=== PATIENT | male | born 2000 | race Caucasian/White ===

== ENCOUNTER → 2019-01-07 11:38 | Outpatient (POV) | payer BC, SELFPAY | PROVIDERS: Visit Provider Dentist | DX: Z00.00 Encounter for general adult medical examination without abnormal findings (principal) ==

== ENCOUNTER 2021-08-10 14:02 | Emergency (ER) | payer BC, SELFPAY ==
[2021-08-10] VITALS (7 sets, daily range): BP systolic 113–142; BP diastolic 68–84; PULSE 78–95; RESP 16; TEMP 36.7; O2SAT 98–100; BMI 20.7
[2021-08-10 14:52] LABS: Coronavirus 19, PCR Not Detected (NotDetected); Influenza A, PCR Not Detected (NotDetected); Influenza B, PCR Not Detected (NotDetected)
[2021-08-10 15:02] LABS: Alanine Aminotransferase 22 U/L (12-78); Albumin Level 5.7 g/dl (3.5-5.0); Albumin/Globulin Ratio 1.7 (1.1-1.8); Alkaline Phosphatase 74 U/L (38-126); Anion Gap 16.7 mEq/L (5-15); Aspartate Amino Transferase 33 U/L (17-59); Bilirubin,Total 0.9 mg/dl (0.2-1.3); Blood Urea Nitrogen 12 mg/dl (9-20); Calcium 10.5 mg/dl (8.4-10.2); Carbon Dioxide 29 mmol/L (22.0-30.0); Chloride 102 mmol/L (98-107); Creatinine Clearance Estimated 135 mL/min (50-200); Estimated Glomerular Filt Rate 121 ml/min (>60); GFR (African American) 146 ML/MIN (>60); Globulin 3.3 g/dL (1.3-3.2); Glucose 88 mg/dl (74-100); Potassium 3.7 mmoL/L (3.5-5.1); Sodium 144 mmol/L (136-145)
[2021-08-10 15:03] LABS: Basophils # 0.1 K/mm3 (0-0.2); Basophils % 0.4 % (0.1-2.0); Eosinophils # 0.2 K/mm3 (0.0-0.4); Eosinophils % 1.3 % (0.1-12.0); Hematocrit 53.7 % (42.0-52.0); Lymphocytes # 2.7 K/mm3 (0.7-4.5); Lymphocytes % 20.7 % (10-50); Mean Corpuscular HGB Conc 34.3 g/dL (31.8-35.4); Mean Corpuscular Hemoglobin 32.3 pg (27.0-31.2); Mean Platelet Volume 7.6 fl (7.4-10.4); Monocytes # 0.8 K/mm3 (0.1-1.0); Monocytes % 5.9 % (1.7-9.3); Neutrophils # 9.3 K/mm3 (1.8-7.8); Neutrophils % 71.7 % (37.0-80.0); Platelet Count 362 K/mm3 (142-424); Red Blood Count 5.71 M/mm3 (4.60-6.20); Red Cell Distribution Width 12.4 % (11.5-17.5); White Blood Count 12.9 K/mm3 (4.8-10.8)
[2021-08-10 15:19] LABS: Hemoglobin 18.4 g/dL (14.1-18.0)
[2021-08-10 16:48] LABS: Microscopic, Urine URINE MICROSCOPIC (MICROSCOPIC)
--- NOTE | 2021-08-10 16:51 | HMH.EDSKAF ---
ED Disposition Clinical Impression: Formication, Abnormal drug screen Disposition: Home, Self-Care Condition on Discharge: Good Instructions: DI for Substance Use Disorder Additional Instructions: see pcp for follow up Referrals: Kali Zamorano [Primary Care Provider] - - Critical Care Critical Care Time: No Attestation: On 08/10/21, the high probability of a clinically significant, sudden or life threatening deterioration of the following system(s) required my full and direct attention, intervention and personal management. The time I documented below is in addition to time spent performing reported procedures but includes the following listed in this critical care notation. Medical Decision Making - Medical Records Medical records reviewed: Yes: I reviewed the patient's medical records. - Inocente Inquiry Pt receiving controlled substance: No Vital Signs: 08/10/21 14:18 08/10/21 15:00 08/10/21 15:30 Temperature 98.1 F Temperature Source Oral Pulse Rate 84 85 Pulse Rate [Right Radial] 78 Respiratory Rate 16 16 16 Blood Pressure 124/70 126/71 Blood Pressure [Right Arm] 133/84 Blood Pressure Mean 95 Blood Pressure Mean [Right Arm] 100 Blood Pressure Source [Right Arm] Automatic Cuff Blood Pressure Position [Right Arm] Sitting 02 Sat by Pulse Oximetry 99 100 100 Oxygen Delivery Method Room Air 08/10/21 16:00 08/10/21 16:30 08/10/21 17:00 Temperature Temperature Source Pulse Rate 78 95 H 78 Pulse Rate [Right Radial] Respiratory Rate 16 16 16 Blood Pressure 124/70 142/82 H 113/68 Blood Pressure [Right Arm] Blood Pressure Mean 98 83 Blood Pressure Mean [Right Arm] Blood Pressure Source [Right Arm] Blood Pressure Position [Right Arm] 02 Sat by Pulse Oximetry 100 98 100 Oxygen Delivery Method Room Air - Lab Data Lab results reviewed: Yes: I reviewed the patient's lab results. Lab Results 08/10/21 14:40: WBC 12.9 H, RBC 5.71, Hgb 18.4 H, Hct 53.7 H, MCV 94.0, MCH 32.3 H, MCHC 34.3, RDW 12.4, Plt Count 362, MPV 7.6, Neut % (Auto) 71.7, Lymph % (Auto) 20.7, [place] % (Auto) 5.9, Eos % (Auto) 1.3, Baso % (Auto) 0.4, Neut # (Auto) 9.3 H, Lymph # (Auto) 2.7, [place] # (Auto) 0.8, Eos # (Auto) 0.2, Baso # (Auto) 0.1 08/10/21 14:40: Sodium 144, Potassium 3.7, Chloride 102, Carbon Dioxide 29, Anion Gap 16.7 H, BUN 12, Creatinine 0.80, Estimated Creat Clear 135, Estimated GFR 121, Est GFR ( Amer) 146, Glucose 88, Calcium 10.5 H, Total Bilirubin 0.9, AST 33, ALT 22, Alkaline Phosphatase 74, Total Protein 9.0 H, Albumin 5.7 H, Globulin 3.3 H, Albumin/Globulin Ratio 1.7 08/10/21 14:40: ESR 2 08/10/21 14:40: C-Reactive Protein < 0.3 08/10/21 14:43: SARS-CoV-2 (PCR) Not detected, Influenza A Untype (PCR) Not detected, Influenza Type B (PCR) Not detected 08/10/21 16:25: Urine Color Yellow, Urine Appearance Sl cloudy, Urine pH 6.0, Ur Specific [place] >= 1.030, Urine Protein Negative, Urine Glucose (UA) Negative, Urine Ketones Negative, Urine Blood Trace-i, Urine Nitrate Negative, Urine Bilirubin Negative, Urine Urobilinogen 0.2, Ur Leukocyte Esterase Negative 08/10/21 16:25: Urine Opiates Screen Negative, Urine Methadone Screen Negative, Ur Barbituates Screen Negative, Ur Phencyclidine Scrn Negative, U Benzodiazepines Scrn Negative, Urine Cocaine Screen Negative, U Marijuana (THC) Screen Positive H Result diagrams: 08/10/21 14:40 08/10/21 14:40 Orders (Tests/Meds): ORDERS Category Date Time Status UA [Urinalysis and Microscopic] Stat Lab 08/10/21 16:25 Results UDS [Drug Screen,Urine] Stat Lab 08/10/21 16:25 Results Medical Decision Narrative: has abn uds and prob drug related formication Skin/Abscess/FB HPI - General Chief complaint: Skin/Abscess/Foreign Body Stated complaint: covid symptoms Time Seen by Provider: 08/10/21 16:51 Mode of Arrival: Ambulatory Source of Information: Patient, Medical Record Limitations: No Limitations Description of Sympt
[2021-08-10 17:16] LABS: Appearance,Urine SL CLOUDY (Clear); Bilirubin,Urine Negative (Negative); Blood, Urine TRACE-I (Negative); Color,Urine YELLOW (Yellow); Glucose,Urine (UA) Negative (Negative); Ketones,Urine Negative (Negative); Leukocyte Esterase,Urine Negative (Negative); Nitrate,Urine Negative (Negative); Protein,Urine Negative (Negative); Specific Gravity, Urine >= 1.030 (1.005-1.030); Urobilinogen,Urine 0.2 EU/dl (0.2)
[2021-08-10 17:29] LABS: C-Reactive Protein < 0.3 mg/L (0-4)
[2021-08-10 17:30] LABS: Erythrocyte Sedimentation Rate 2 mm/hr (0-15)
[2021-08-10 17:33] LABS: Barbiturates Screen,Urine Negative ng/ml (<200)
[2021-08-10 17:34] LABS: Benzodiazepines Screen,Urine Negative ng/ml (<200); Cannabinoid Screen,Urine Positive ng/ml (<50)
[2021-08-10 17:35] LABS: Cocaine Screen,Urine Negative ng/ml (<300); Methadone Screen,Urine Negative ng/ml (<300)
[2021-08-10 17:36] LABS: Opiate Screen,Urine Negative ng/ml (<300)
[2021-08-10 17:37] LABS: Phencyclidine Screen,Urine Negative ng/ml (<25)
[2021-08-10 17:53] LABS: Bacteria,Urine Trace /lpf; Calcium Oxalate Crystals,Urine 1+ /lpf; Squamous Epithelial Cell,Urine Occasional #/hpf (0-5)
[2021-08-10 18:04] LABS: Amphetamine/Metha Screen,Urine Positive ng/ml (<1000)
== END 2021-08-10 18:00 | disposition home or self-care (01) ==
PROVIDERS: Emergency Provider Emergency Medicine; PCP Pediatrics
DX: R20.2 Paresthesia of skin (principal); R89.2 Abnormal level of other drugs, medicaments and biological substances in specimens from other organs, systems and tissues; F12.10 Cannabis abuse, uncomplicated; Z88.1 Allergy status to other antibiotic agents; Z20.822 Contact with and (suspected) exposure to COVID-19
CPT/HCPCS: 80053; 80305; 81001; 85025; 85651; 86140; 99283; C9803; U0003; U0005

== ENCOUNTER 2022-09-25 20:29 | Emergency (ER) | payer BC, SELFPAY ==
[2022-09-25 20:32] VITALS: BP 130/75; PULSE 90; RESP 17; TEMP 36.7; O2SAT 98; BMI 23.7
--- NOTE | 2022-09-25 23:18 | HMH.EDEYEP ---
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 by RN): Pt c/o flash-burn to bilateral eyes today at work. States my eyes feel like sandpaper . Reports his vision is blurry. He does not wear corrective lenses. Pt reports he was wearing a helmet. History of Present Illness HPI Narrative: exposed to welding at work and now with eye pain MD chief complaint: eye pain Onset (ago): hour(s) Onset description: gradual Duration: constant Location: both eyes Eye Symptoms: pain Place: work Mechanism: UV exposure Severity: moderate Associated symptoms: none Related Data Patient tetanus UTD: Yes Allergies Allergy/AdvReac Type Severity Reaction Status Date / Time amoxicillin [From Augmentin] Allergy Verified 08/10/21 15:48 clavulanic acid Allergy Verified 08/10/21 15:48 [From Augmentin] PFSH PFSH Social History Smoking Status: Current every day smoker alcohol intake: never current occupational status: employed Travel in the last 8 weeks: None ROS Obtained: Yes All systems reviewed & no additional complaints except as documented Physical Exam General General appearance: alert Head Head exam: normocephalic Eye Eye exam: Present PERRL and EOMI ENT ENT exam: Present mucous membranes moist Neck Neck exam: Present trachea midline Respiratory Respiratory exam: Absent respiratory distress Cardiovascular Cardiovascular exam: Present regular rate Abdominal Exam Abdominal exam: Present soft Extremities Exam Extremities exam: Present full ROM Neurological Exam Neurological exam: Present alert and CN II-XII intact Skin Skin exam: Absent rash Medical Decision Making Medical Records Medical records reviewed: Yes I reviewed the patient's medical records. Inocente Inquiry Pt receiving controlled substance: No Vital Signs: 09/25/22 20:32 09/25/22 23:31 Temperature 98.0 F 98 F Temperature Source Oral Oral Pulse Rate 88 Pulse Rate [Right] 90 Respiratory Rate 17 18 Blood Pressure 125/67 Blood Pressure [Right Arm] 130/75 Blood Pressure Mean [Right Arm] 93 Blood Pressure Source Automatic Cuff Blood Pressure Source [Right Arm] Automatic Cuff Blood Pressure Position Sitting 02 Sat by Pulse Oximetry 98 Oxygen Delivery Method Room Air Room Air Lab Data Lab results reviewed: Yes I reviewed the patient's lab results. Orders (Tests/Meds): ED MEDICATIONS Discontinued Medications Generic Name Dose Route Start Last Admin Trade Name Carmela PRN Reason Stop Dose Admin Hydrocodone Bitart/Acetaminophen 1 tab 09/25/22 23:14 09/25/22 23:31 Hydrocodone/Apap 5/325 Mg Tablet PO 09/25/22 23:15 1 tab ONCE ONE Administration Neomycin/Polymyxin/Bacitracin 0.1 gm 09/25/22 23:14 09/25/22 23:32 [id number] Ophth Oint 3.5gm Tube OP 09/25/22 23:15 1 applic ONCE ONE Administration Tetracaine HCl 1 ml 09/25/22 23:14 09/25/22 23:33 Tetracaine 0.5% Opth Farzana 15ml OP 09/25/22 23:15 1 applic ONCE ONE Administration Tropicamide 0.1 ml 09/25/22 23:14 09/25/22 23:33 Tropicamide 1% Opth Soln 2ml OP 09/25/22 23:15 1 applic ONCE ONE Administration Medical Decision Narrative: see dr yang in am Procedures Eye Exam/FB Removal Location: eye (L) and eye (R) Topical anesthetic used: tetracaine Fluore
--- NOTE | 2022-09-25 23:26 | PC.NURSE ---
melissa on phone with dr yang @ this time
[2022-09-25 23:31] VITALS: BP 125/67; PULSE 88; RESP 18; TEMP 36.6; O2SAT 99
== END 2022-09-25 23:34 | disposition home or self-care (01) ==
PROVIDERS: Emergency Provider Emergency Medicine; PCP Urology
DX: T26.42XA Burn of left eye and adnexa, part unspecified, initial encounter (principal); T26.41XA Burn of right eye and adnexa, part unspecified, initial encounter; T79.8XXA Other early complications of trauma, initial encounter; F17.200 Nicotine dependence, unspecified, uncomplicated; Z88.0 Allergy status to penicillin; Z88.1 Allergy status to other antibiotic agents; Z88.3 Allergy status to other anti-infective agents; X08.8XXA Exposure to other specified smoke, fire and flames, initial encounter; Y99.0 Civilian activity done for income or pay
CPT/HCPCS: 99282

== ENCOUNTER 2023-05-08 05:57 | Emergency (ER) | payer OTHER, BC, SELFPAY ==
--- NOTE | 2023-05-08 05:30 | XR_ITS ---
PROCEDURE INFORMATION: Exam: XR Left Hand Exam date and time: 05/08/2023 5:41 AM Age: 22 years old Clinical indication: Injury or trauma; Fall; Crushing; Hand; Left; Additional info: Hand injury TECHNIQUE: Imaging protocol: Radiologic exam of the left hand. Views: 3 or more views. COMPARISON: No relevant prior studies available. FINDINGS: Bones/joints: No acute fracture or malalignment. Joint spaces are maintained. Soft tissues: Normal. IMPRESSION: No acute fracture or malalignment.
[2023-05-08 05:58] VITALS: BP 153/92; PULSE 100; RESP 18; TEMP 36.5; O2SAT 100; BMI 21.5
--- NOTE | 2023-05-08 06:10 | PC.NURSE ---
Pt has visitor at with workers comp forms
--- NOTE | 2023-05-08 06:58 | HMH.EDUPEXT ---
Discharge Plan Disposition Patient Disposition: Home, Self-Care Chief Complaint: Extremity Injury, Upper Prescriptions Prescriptions: No Action No Known Home Medications Referrals Follow up/Referrals: Kali Zamorano [Primary Care Provider] - See instructions Clinical Impressions Clinical Impression: Contusion of hand Instructions Patient Instructions: Sprain Discharge ED Provider: Kerrie (ED)Mathieu Upper Extremity HPI General Chief Complaint: Extremity Injury, Upper Stated Complaint: WC 05/08/23 Injury left hand Time Seen by Provider: 05/08/23 06:00 Mode of Arrival: Ambulatory Source of Information: Patient and Medical Record Limitations: No Limitations Description of Symptoms (Recalled from ER Triage Doc. by RN): Pt works at [employer] door smashed his left hand History of Present Illness HPI narrative: acute injury lt hand at work MD complaint: injury to: left and hand Onset (ago): hour(s) Other Extremity Injury: Left: hand Other injuries: none Handedness: right Place: work Severity: moderate Context: direct blow Associated symptoms: denies other symptoms Related Data Home Medications Medication Instructions Recorded Confirmed No Known Home Medications 05/08/23 05/08/23 Allergies Allergy/AdvReac Type Severity Reaction Status Date / Time amoxicillin [From Augmentin] Allergy Verified 08/10/21 15:48 clavulanic acid Allergy Verified 08/10/21 15:48 [From Augmentin] [facility] Disclaimer: The information contained in this section may have been updated after the patient was seen, as this information can be updated by other users. Social History (Updated 09/26/22 @ 03:47 by Mathieu Sy MD) Smoking Status: Current every day smoker alcohol intake: never current occupational status: employed Travel in the last 8 weeks: None ROS Obtained: Yes All systems reviewed & no additional complaints except as documented Physical Exam General General appearance: alert Head Head exam: normocephalic Eye Eye exam: Present PERRL and EOMI ENT ENT exam: Present mucous membranes moist Neck Neck exam: Present trachea midline Respiratory Respiratory exam: Present normal lung sounds bilaterally; Absent respiratory distress Cardiovascular Cardiovascular exam: Present regular rate Abdominal Exam Abdominal exam: Present soft Expanded Upper Extremity Exam Left: Hand exam: Present tenderness; Absent full ROM, amputation, nail avulsion or subungual hematoma Neuromotor exam: Normal wrist extension Vascular exam: Normal radial pulse Neurological Exam Neurological exam: Present alert and CN II-XII intact Psychiatric Psychiatric exam: Present normal affect Skin Skin exam: Absent rash Medical Decision Making Medical Records Medical records reviewed: Yes I reviewed the patient's medical records. Inocente Inquiry Pt receiving controlled substance: No Vital Signs: 05/08/23 05:58 05/08/23 08:04 Temperature 97.7 F Temperature Source Oral Pulse Rate [Right] 100 H Respiratory Rate 18 Blood Pressure 135/77 Blood Pressure [Right Arm] 153/92 H Blood Pressure Mean 91 Blood Pressure Mean [Right Arm] 112 Blood Pressure Source [Right Arm] Automatic Cuff Blood Pressure Position [Right Arm] Sitting 02 Sat by Pulse Oximetry 100 Oxygen Delivery Method Room Air Lab Data Lab results reviewed: Yes I reviewed the patient's lab results. Orders (Tests/Meds): ED MEDICATIONS Discontinued Medications Generic Name Dose Route Start Last Admin Trade Name Freq PRN Reason Stop Dose Admin Tetanus/Reduced Diphtheria/Acell Pertussis 0.5 ml 05/08/23 06:46 05/08/23 06:49 Tet/Diphth/Pert-Adult 0.5ml Syringe IM 05/08/23 06:47 0.5 ml .ONCE ONE Administration ORDERS Category Date Time Status XR hand LT min 3V Stat Exams 05/08/23 05:30 Taken Radiology Data #1: Image(s): Hand Image Reviewed: Yes I
--- NOTE | 2023-05-08 07:43 | PC.NURSE ---
radiology contacted, for further information on films, Isaiah will have someone call me back with information.
--- NOTE | 2023-05-08 07:48 | PC.NURSE ---
per radiology films are in lock status at this time
[2023-05-08 08:04] VITALS: BP 135/77
--- NOTE | 2023-05-08 08:08 | PC.NURSE ---
pt and family updated on plan of care, no needs at this time
[2023-05-08 08:44] VITALS: BP 135/77; PULSE 96; RESP 18; TEMP 36.5; O2SAT 98
== END 2023-05-08 08:51 | disposition home or self-care (01) ==
PROVIDERS: Emergency Provider Emergency Medicine; PCP Pediatrics
DX: S60.222A Contusion of left hand, initial encounter (principal); F17.200 Nicotine dependence, unspecified, uncomplicated; W23.2XXA Caught, crushed, jammed or pinched between a moving and stationary object, initial encounter; Y99.0 Civilian activity done for income or pay; Z23 Encounter for immunization
CPT/HCPCS: 73130; 90471; 90715; 96372; 99283; 99284